=== PATIENT | male | born 1975 | race Caucasian/White ===

== ENCOUNTER 2018-04-27 16:39 | Emergency (ER) | payer SELFPAY ==
[2018-04-27] MEDS ORDERED: THIAMINE HCL(*) 200 MG/2 ML IN 100 MG, FOLIC ACID(*) 50 MG/10 ML INJ 1 MG, MULTIVITAMIN... IV ONE (17:00)
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
[2018-04-27] MEDS ORDERED: LORazepam 2 MG/ML VIAL IVP ONE (17:10)
[2018-04-27 17:19] LABS: PLATELET COUNT, AUTOMATED 337 K/uL (150-450)
[2018-04-27] MEDS ORDERED: ONDANSETRON 4 MG/2 ML VIAL IVP ONE (18:30)
[2018-04-27] MEDS ORDERED: NICOTINE 21 MG/24 HR PATCH TD ONE (18:30)
[2018-04-27 19:00] VITALS: BP 121/76
== END 2018-04-27 19:35 ==
LOC: ER 16:53
DX: F10.220 Alcohol dependence with intoxication, uncomplicated (principal); F12.10 Cannabis abuse, uncomplicated; R45.851 Suicidal ideations; F32.9 Major depressive disorder, single episode, unspecified
CPT/HCPCS: 80305; 80320; 80329; 81001; 83735; 84443; 85025; 96365; 96366; 96375; 99284; J2060; J2405; J3411; J3475; J7030; 82040; 82247; 82310; 82374; 82435; 82565; 82947; 84075; 84132; 84155; 84295; 84450; 84460; 84520

== ENCOUNTER 2018-04-27 18:26 | Inpatient (IN) | payer SELFPAY ==
[2018-04-27] MEDS ORDERED: NICOTINE CARTRIDGE 1 EA PO PRN (19:40)
[2018-04-27] MEDS ORDERED: DIAZEPAM 10 MG TAB PO PRN (19:40)
[2018-04-27] MEDS ORDERED: MAG HYD/AL HYD/SIMETH 30ML UDC PO PRN (19:40)
[2018-04-27] MEDS ORDERED: NICOTINE INH SYSTEM 10 MG/INH INH PRN (19:40)
[2018-04-28 05:08] VITALS: BP 128/78
[2018-04-28] MEDS: THIAMINE HCL 100 MG TAB PO SCH (08:34)
[2018-04-28] MEDS: MULTIVITAMINS TAB PO SCH (08:34)
[2018-04-28] MEDS: FOLIC ACID 1 MG TAB PO SCH (08:34)
[2018-04-28] MEDS: IBUPROFEN 600 MG TAB PO PRN (10:37)
[2018-04-28 13:02] VITALS: BP 110/68
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
[2018-04-28 19:45] VITALS: BP 142/84
[2018-04-28] MEDS: hydrOXYzine PAMOATE 25 MG CAP PO PRN (19:58)
[2018-04-29 06:47] VITALS: BP 78/58
[2018-04-29] MEDS: MULTIVITAMINS TAB PO SCH (08:39)
[2018-04-29] MEDS: hydrOXYzine PAMOATE 25 MG CAP PO PRN ×3 (08:39→20:44)
[2018-04-29] MEDS: FOLIC ACID 1 MG TAB PO SCH (08:39)
[2018-04-29] MEDS: THIAMINE HCL 100 MG TAB PO SCH (08:39)
[2018-04-29] MEDS: IBUPROFEN 600 MG TAB PO PRN (08:39)
--- NOTE | 2018-04-29 10:41 | BHS Progress Note ---
S - Subjective Progress Notes Subjective "I'm feeling better physically. I'm really anxious worrying about my apartment because I want to go to treatment and I can't lose it....I think my Dad will help...." Rates depression level a 9. Denies Suicidal thoughts. Suicidal Ideation: None Homicidal Ideation: None [facility] - Objective Physical Exam Vital Signs Vital Signs 04/28/18 04/28/18 04/29/18 05:08 13:02 06:47 Temp 97.8 Pulse 74 Resp 16 B/P (MAP) 78/58 (65) Pulse Ox 95 O2 Delivery Room Air O2 Flow Rate 1.0 Muscle Strength and Tone: WNL Gait and Station: Steady [facility] Medications Reviewed: Side Effects, Benefits of Medication, Risks Allergies Reviewed: Yes Mental Status Exam General Appearance: Casual, Well Groomed, Cooperative, Polite, Tearful Speech: Clear, Spontaneous, Normal Rate, Normal Rhythm, Normal Volume, Normal Tone Mood: Dysthmic/Depressed Affect: Sad, Tearful, Anxious Thought Process: Organized, Logical, Goal Directed, Loose Associations; No Flight of Ideas Thought Content: No Suicidal Ideation, No Homicidal Ideation, No Delusions, No Auditory Halllucinations, No Visual Hallucinations, No Thought Broadcasting, No Ideas of Reference, No Obsessions, No Compulsions Sensorium: Clear Cognition: Alert & Oriented-Person, Alert & Oriented-Place, Alert & Oriented- Time, [id number]-[id number] Memory: Immediate, Recent, Remote Intelligence: Average Insight Judgment: Fair [facility] Assessment and Plan Sniz-lg-[id number] Encounter Date: Apr 29, 2018 Fapi-sw-[id number] Encounter Time: 10:20 [facility] Plan: Admit to Unit, Necessary Precautions, Individual/Group Therapy, Admin/Titrate Meds, Educate Patient Tobacco Medications: Not Appropriate Condition Multpiple Antipsychotics Used: No Problems: (1) Polysubstance abuse Status: Acute (2) Depression with suicidal ideation Status: Acute DI SANTIAGO NP Apr 29, 2018 10:41
[2018-04-29] MEDS: CITALOPRAM HYDROBROM 20 MG TAB PO SCH (11:53)
[2018-04-29 15:00] VITALS: BP 108/64
[2018-04-29] MEDS: NICOTINE POLACRILEX 4 MG LOZG PO PRN ×2 (16:11→19:52)
[2018-04-29 19:55] VITALS: BP 130/78
[2018-04-30] MEDS: hydrOXYzine PAMOATE 25 MG CAP PO PRN ×2 (05:24→20:27)
[2018-04-30 05:37] VITALS: BP 144/104
[2018-04-30] MEDS: CITALOPRAM HYDROBROM 20 MG TAB PO SCH (08:18)
[2018-04-30] MEDS: FOLIC ACID 1 MG TAB PO SCH (08:18)
[2018-04-30] MEDS: THIAMINE HCL 100 MG TAB PO SCH (08:18)
[2018-04-30] MEDS: MULTIVITAMINS TAB PO SCH (08:18)
[2018-04-30] MEDS ORDERED: traZODone HCL 50 MG TAB PO PRN (11:05)
--- NOTE | 2018-04-30 13:37 | BHS Progress Note ---
[facility] - Subjective Progress Notes Subjective Patient's alcohol withdrawal is now complete, will look into rehab upon discharge, Will contact outpatient services in [place] for possible return there. Patient demonstrating underlying maladaptive personality traits, as evidenced by negative interactions with nurse. Will continue to evaluate, educate on polysubstance use. Suicidal Ideation: None Homicidal Ideation: None [facility] - Objective Physical Exam Vital Signs Vital Signs Date Time Temp Pulse Resp B/P (MAP) Pulse Ox O2 Delivery O2 Flow Rate FiO2 04/30/18 05:37 98.0 67 144/104 (117) 95 Room Air 04/29/18 15:00 16 04/28/18 05:08 1.0 Muscle Strength and Tone: WNL Gait and Station: Steady [facility] Medications Reviewed: Side Effects, Benefits of Medication, Risks Allergies Reviewed: Yes Mental Status Exam General Appearance: Casual, Well Groomed, Cooperative, Polite Speech: Clear, Spontaneous, Normal Rate, Normal Rhythm, Normal Volume, Normal Tone Mood: Dysthmic/Depressed Affect: Sad, Anxious Thought Process: Organized, Logical, Goal Directed, Loose Associations; No Flight of Ideas Thought Content: No Suicidal Ideation, No Homicidal Ideation, No Delusions, No Auditory Halllucinations, No Visual Hallucinations, No Thought Broadcasting, No Ideas of Reference, No Obsessions, No Compulsions Sensorium: Clear Cognition: Alert & Oriented-Person, Alert & Oriented-Place, Alert & Oriented- Time, Jijoc-Wjlujgnn-Dyxqbftzb Memory: Immediate, Recent, Remote Intelligence: Average Insight Judgment: Fair (in absence of substance use, maladaptive stress coping mechanisms and personality traits evident. ) [facility] Assessment and Plan Gvls-mr-Wens Encounter Date: Apr 30, 2018 Biot-jz-Rhcu Encounter Time: 10:00 [facility] Plan: Admit to Unit, Necessary Precautions, Individual/Group Therapy, Admin/Titrate Meds, Educate Patient Tobacco Medications: Not Appropriate Condition Multpiple Antipsychotics Used: No Problems: (1) Alcohol withdrawal Status: Acute (2) Alcohol use disorder, severe, in controlled environment Status: Chronic (3) Cannabis use disorder, severe, in controlled environment Status: Chronic Condition 1. will start trazadone tonight. 2. look for potential rehab placement. Problem Qualifiers (1) Alcohol withdrawal: Complication of substance-induced condition: uncomplicated Qualified Codes: F10.230 - Alcohol dependence with withdrawal, uncomplicated GENA PALMER MD Apr 30, 2018 13:37
[2018-04-30] MEDS: NICOTINE POLACRILEX 4 MG LOZG PO PRN (14:31)
[2018-04-30] MEDS: IBUPROFEN 600 MG TAB PO PRN (14:31)
[2018-04-30 14:49] VITALS: BP 126/89
[2018-04-30] MEDS: traZODone HCL 50 MG TAB PO SCH ×2 (20:27→21:27)
[2018-04-30 22:35] VITALS: BP 112/84
[2018-05-01 06:19] VITALS: BP 124/70
[2018-05-01] MEDS: MULTIVITAMINS TAB PO SCH (08:18)
[2018-05-01] MEDS: CITALOPRAM HYDROBROM 20 MG TAB PO SCH (08:18)
[2018-05-01] MEDS: FOLIC ACID 1 MG TAB PO SCH (08:18)
[2018-05-01] MEDS: THIAMINE HCL 100 MG TAB PO SCH (08:18)
[2018-05-01] MEDS: IBUPROFEN 600 MG TAB PO PRN ×2 (08:25→21:17)
[2018-05-01] MEDS: NICOTINE POLACRILEX 4 MG LOZG PO PRN ×2 (09:20→21:16)
--- NOTE | 2018-05-01 12:05 | BHS Progress Note ---
[facility] - Subjective Progress Notes Subjective Patient cooperative today, has complaints of right hand pain from recent bone fracture. At this time will get X-ray today, and increase trazadone. No other complaints today. Suicidal Ideation: None Homicidal Ideation: None [facility] - Objective Physical Exam Vital Signs Vital Signs Date Time Temp Pulse Resp B/P (MAP) Pulse Ox O2 Delivery O2 Flow Rate FiO2 05/01/18 06:19 98.1 50 124/70 (88) 96 Room Air 04/29/18 15:00 16 04/28/18 05:08 1.0 Muscle Strength and Tone: WNL Gait and Station: Steady [facility] Medications Reviewed: Side Effects, Benefits of Medication, Risks Allergies Reviewed: Yes Mental Status Exam General Appearance: Casual, Well Groomed, Good Eye Contact, Cooperative, Polite; No Tearful, No Psychomotor Agitation, No Psychomotor Retardation Speech: Clear, Spontaneous, Normal Rate, Normal Rhythm, Normal Volume, Normal Tone; No Garbled, No Rambling, No Inappropriate Mood: Dysthmic/Depressed (imp[[roving) Affect: Full and Appropriate, Calm; No Sad, No Tearful, No Anxious, No Agitated Thought Process: Organized, Logical, Goal Directed; No Loose Associations, No Flight of Ideas Thought Content: No Suicidal Ideation, No Homicidal Ideation, No Delusions, No Auditory Halllucinations, No Visual Hallucinations, No Thought Broadcasting, No Ideas of Reference, No Obsessions, No Compulsions Sensorium: Clear Cognition: Alert & Oriented-Person, Alert & Oriented-Place, Alert & Oriented- Time, [id number]-[id number]-[id number] Memory: Immediate, Recent, Remote Intelligence: Average Insight Judgment: Fair (in absence of substance use, maladaptive stress coping mechanisms and personality traits evident. ) [facility] Assessment and Plan [id number] Encounter Date: May 01, 2018 Fyix-pr-Khum Encounter Time: 11:30 [facility] Plan: Admit to Unit, Necessary Precautions, Individual/Group Therapy, Admin/Titrate Meds, Educate Patient Tobacco Medications: Not Appropriate Condition Multpiple Antipsychotics Used: No Problems: (1) Alcohol withdrawal Status: Acute (2) Alcohol use disorder, severe, in controlled environment Status: Chronic (3) Cannabis use disorder, severe, in controlled environment Status: Chronic Condition 1. continue treatment. 2. increase trazadone. 3. x ray of right hand. Problem Qualifiers (1) Alcohol withdrawal: Complication of substance-induced condition: uncomplicated Qualified Codes: F10.230 - Alcohol dependence with withdrawal, uncomplicated GENA PALMER MD May 01, 2018 12:05
--- NOTE | 2018-05-01 13:17 | RADIOLOGY IMAGING REPORT ---
FACILITY: [facility] PATIENT NAME: Logan Frank : 1975 MR: [id number] V: [id number] EXAM DATE: ORDERING PHYSICIAN: GENA PALMER TECHNOLOGIST: Location: [facility] Patient: Logan Frank : 1975 Visit/Account:[id number] Date of Sevice: 05/01/2018 3 views right hand Indication: Pain and deformity medial aspect right hand Comparison: None Available. Findings: Distal radius and ulna are intact. Radiocarpal and intercarpal articulations are within normal limit s. There is a comminuted, intra-articular, mildly displaced fracture involving the proximal portion fift h metacarpal bone. The medial articular surfaces rotated medially with minimal 1.7 mm medial displac ement. There is increased sclerosis to suggest this is a subacute fracture. Impression: 1. Comminuted, intra-articular fifth metacarpal bone Report Dictated By: Rosalio Willis MD at 05/01/2018 1:12 PM Report E-Signed By: Rosalio Willis MD at 05/01/2018 1:14 PM WSN:[id number]
[2018-05-01 13:45] VITALS: BP 133/84
[2018-05-01] MEDS ORDERED: traZODone HCL 50 MG TAB PO SCH (21:00)
[2018-05-01] MEDS: hydrOXYzine PAMOATE 25 MG CAP PO PRN (21:16)
[2018-05-02 06:08] VITALS: BP 105/55
[2018-05-02] MEDS: IBUPROFEN 600 MG TAB PO PRN (07:55)
[2018-05-02] MEDS: THIAMINE HCL 100 MG TAB PO SCH (07:55)
[2018-05-02] MEDS: MULTIVITAMINS TAB PO SCH (07:55)
[2018-05-02] MEDS: hydrOXYzine PAMOATE 25 MG CAP PO PRN (07:55)
[2018-05-02] MEDS: FOLIC ACID 1 MG TAB PO SCH (07:55)
[2018-05-02] MEDS: CITALOPRAM HYDROBROM 20 MG TAB PO SCH (07:55)
[2018-05-02] MEDS: NICOTINE POLACRILEX 4 MG LOZG PO PRN (12:18)
[2018-05-02] MEDS ORDERED: CITA-156 PO (12:59)
[2018-05-02] MEDS ORDERED: TRAZ150T8 PO (13:00)
[2018-05-02] MEDS ORDERED: MULT-1379 PO (13:01)
[2018-05-02] MEDS ORDERED: FOLI-68 PO (13:01)
[2018-05-02] MEDS ORDERED: NICO4LOZ35 BC (13:03)
[2018-05-02] MEDS ORDERED: THIA100T2 PO (13:03)
[2018-05-02] MEDS ORDERED: IBUP-1671 PO (13:04)
--- NOTE | 2018-05-03 16:15 | DISCHARGE SUMMARY ---
Patient was seen in the a.m. of May 02, 2018 at approximately 1100 hours for note concerning this dictation. FINAL DIAGNOSES PER DSM-V Alcohol use disorder severe. Cannabis use disorder severe. Hypnotic use disorder. History of persisting depressive disorder versus major depression. REASON FOR ADMISSION Please see H and P for full details. This patient was noted to be from the [place] area where it is believed he had recently completed detox in [facility]. Patient was discharged, immediately resumed alcohol consumption. Patient seeing outpatient providers and was told to travel to [facility] to get further assistance with alcohol and drug addiction. Patient was treated for minimal alcohol withdrawal on the unit. Patient was found to have fracture of right hand as well. Patient was overall compliant with treatment. Patient agreed to enter social detox and await residential treatment facility opening back in [place] at the time of discharge. Patient denying any other psychiatric concerns at the time of discharge. PHYSICAL EXAMINATION GENERAL: Please see emergency room note. VITAL SIGNS: On arrival to the emergency room, temperature 98.4, pulse 113, respiratory rate 22, blood pressure 138/104 and pulse oximetry 96 on room air. At the time of discharge from [facility], vital signs showed temperature 97.8, pulse 51, blood pressure 105/55. Patient asymptomatic. Respiratory rate of 15 and pulse oximetry of 97 on room air. LABORATORY DATA CBC upon admission notable for white blood cell count slightly elevated at 12.8, MCV and MCH elevated at 98.3 and 33.7 respectively. Chemistry panel notable for AST elevated at 76 and ALT elevated at 75 with a total bilirubin of 0.4, in normal range. Toxicology screen positive for benzodiazepines upon arrival. Patient notably recently discharging from [facility] where he as likely treated for benzodiazepines. Cannabinoid screen was positive, as well with a serum alcohol level of 251 upon admission. Urinalysis was otherwise unremarkable. MENTAL STATUS EXAMINATION AT THE TIME OF DISCHARGE GENERAL APPEARANCE, BEHAVIOR AND ATTITUDE: A 42-year-old male who appears stated age. No psychomotor agitation or retardation. Patient cooperative. Nontearful, making good eye contact. SPEECH: Within normal limits, regular rate, rhythm, volume and tone. MOOD: Described as improved. AFFECT: Minimally constricted. Mood congruent overall. THOUGHT PROCESSES: Goal directed. Patient agreeing to enter rehab. Logical. No loose associations or flight of ideas. THOUGHT CONTENT: Free of auditory or visual hallucinations, ideas of reference, thought broadcastings, delusions, obsessions, compulsions. Patient adamantly denying suicidal or homicidal ideation. SENSORIUM: Clear. COGNITION: Alert and oriented to person, place, time and situation. MEMORY: Immediate, recent and remote estimated intact. INTELLIGENCE: Average based on interview. INSIGHT AND JUDGMENT: Considered grossly intact in the absence of alcohol and substance use and appropriate for entrance into social detox to await rehab program. RESULTS OF TESTING IMAGING: X-ray of right hand on May 01, 2018 was performed. Patient had reported ongoing pain from previous likely fracture. An intra-articular fifth metacarpal bone was found to be fractured. Patient was brought down to the emergency room where this was braced. Patient would continue to follow up in [facility] for any associated concerns. Patient did indicate an understanding. LABORATORY DATA: See above. CONSULTATIONS: None. TREATMENT Patient received medications, participated in individual and group therapy, and patient was an active participant throughout his stay. Alcohol withdrawal was considered minimal. CONDITION OF PATIENT ON DISCHARGE Stable. Considered minimal risk to himself or others and appropriate for entrance into rehab. DISPOSITION Patient discharged to home. He would take a bus to [facility] and enter the residential program there. Patient was discharged on Celexa 20 mg every.a.m., trazodone 150 mg every day at bedtime, folic acid 1 mg daily, multivitamin with minerals daily, thiamine 100 mg daily. Patient could continue nicotine replacement with lozenges over the counter. Patient could continue Motrin. Patient would stop Vistaril. Patient agreed to abstain from alcohol, cannabis, benzodiazepines, all other illicit substances as well. Patient would follow up with fracture as well. Risks, benefits and alternatives of the above discharge plan were discussed. Informed consent was given to proceed with above discharge plan by this competent patient, accepting facility in [place]. [facility]
== END 2018-05-02 13:55 | disposition home or self-care (01) | DRG 897 ==
LOC: BHS 18:26
PROVIDERS: ADMIT Registered Nurse Psychiatric/Mental Health, Adult; ATTEND Registered Nurse Psychiatric/Mental Health, Adult
DX: F10.239 Alcohol dependence with withdrawal, unspecified (principal); R45.851 Suicidal ideations; F12.90 Cannabis use, unspecified, uncomplicated; F13.90 Sedative, hypnotic, or anxiolytic use, unspecified, uncomplicated; F32.9 Major depressive disorder, single episode, unspecified; S62.306A Unspecified fracture of fifth metacarpal bone, right hand, initial encounter for closed fracture; W22.01XA Walked into wall, initial encounter; Y90.8 Blood alcohol level of 240 mg/100 ml or more
CPT/HCPCS: Q0177